=== PATIENT | female | born 1995 | race Caucasian/White ===

== ENCOUNTER 2018-10-22 07:52 | Day surgery (SDC) | payer OTHER ==
[2018-10-20 14:21] VITALS: Ht 160 cm; Wt 76.8 kg
[2018-10-22] VITALS (10 sets, daily range): BP systolic 90–137; BP diastolic 47–72; PULSE 62–98; RESP 10–25
[~2018-10-22] VITALS: Ht 160 cm; Wt 76.8 kg
[~2018-10-22 07:52] MED LIST: CEFAZOLIN 2 GM/50 ML (PMX) 50 ML IVPB SCH; SOD CHLORIDE 0.9% 1,000 ML IV SCH
[2018-10-22] MEDS ORDERED: PNV1TABL12 ORAL (08:22)
--- NOTE | 2018-10-22 11:19 | PREAC ---
Date/Time of Note Date/Time of Note DATE: 10/22/18 TIME: 11:18 Anesthesia Eval and Record Evaluation Time Pre-Procedure Interview DATE: 10/22/18 TIME: 11:18 Age 23 Sex female NPO: 8 hrs Preoperative diagnosis cholelithiasis Planned procedure laparoscopic cholecystectomy Past Medical History Past Medical History: Includes GI: Obesity Surgery & Anesthesia Issues No known issue Meds Anticoagulation: No Beta Sherman within 24 hr: No Reason Beta Sherman not given: Pt. not on B-Sherman Reported Medications Pnv Cmb#21/Iron/Folic Acid ( Complete Caplet) 1 Each Tablet, 1 TAB ORAL DAILY, TAB 10/22/18 Current Medications Cefazolin Sodium/ Dextrose 50 ml @ 100 mls/hr PREOP IVPB ; Start 10/22/18 at 07:00; Stop 10/22/18 at 16:00 Sodium Chloride 1,000 ml @ 75 mls/hr [id number] IV ; Start 10/22/18 at 07:00; Stop 10/22/18 at 20:19 Meds reviewed: Yes Allergies Coded Allergies: No Known Allergy (Unverified , 10/22/18) Allergies Reviewed: Yes Labs/Studies Labs Reviewed: Reviewed by anesthesiologist test: Negative Pre-procedure Exam Airway: Adequate mouth opening, Adequate thyromental dist Mallampati: Mallampati II Teeth: Normal Lung: Normal Heart: Normal ASA Physical Status ASA physical status: 2 Emergency: None Planned Anesthetic General/MAC: ETT Nerve block: TAP (bilateral) Planned Pain Management Single shot nerve block, Parenteral pain med Pre-operative Attestations Prior to commencing anesthesia and surgery, the patient was re-evaluated, there was verification of: *The patient's identity *The results of appropriate recent lab work and preoperative vital signs *The above evaluation not changing prior to induction *Anesthetic plan, risk benefits, alternative and complications discussed with patient/family; questions answered; patient/family understands, accepts and wishes to proceed. JOANN LOPEZ MD Oct 22, 2018 11:19
[2018-10-22] MEDS ORDERED: PROPOFOL 20 ML ONE (11:24)
[2018-10-22] MEDS ORDERED: ROCURONIUM 50 MG INJ ONE (11:24)
[2018-10-22] MEDS ORDERED: FENTAnyl 50 MCG/ML VIAL ONE ×2 (11:24→12:26)
[2018-10-22] MEDS ORDERED: LIDOCAINE 2% (SDV) 5 ML INJ ONE (11:24)
[2018-10-22] MEDS ORDERED: MIDAZOLAM 1 MG/ML 2 ML INJ ONE (11:24)
[2018-10-22] MEDS ORDERED: ROPIVACAINE 0.5 % 30 ML VIAL ONE (11:25)
[2018-10-22] MEDS ORDERED: FENTAnyl 50 MCG/ML VIAL IV PRN ×2 (11:30)
[2018-10-22] MEDS ORDERED: EPHEDrine SULFATE 50 MG/5 ML SYG IV PRN (11:30)
[2018-10-22] MEDS ORDERED: LABETALOL HCL 20MG INJ IV PRN (11:30)
[2018-10-22] MEDS ORDERED: MEPERIDINE 25 MG INJ IV PRN (11:30)
[2018-10-22] MEDS ORDERED: DIPHENHYDRAMINE 50 MG INJ IV PRN (11:30)
[2018-10-22] MEDS ORDERED: ONDANSETRON 4 MG INJ IV PRN (11:30)
[2018-10-22] MEDS ORDERED: OXYCODONE/ACETAMINOPHEN (5/325) TAB PO PRN (11:30)
[2018-10-22] MEDS ORDERED: HYDROmorphONE 1 MG/5 ML IV SYRINGE IV PRN ×3 (11:30)
[2018-10-22] MEDS ORDERED: hydrALAzine 20 MG INJ IV PRN (11:30)
[2018-10-22] MEDS ORDERED: PROCHLORPERAZINE 10 MG INJ IV PRN (11:30)
[2018-10-22] MEDS ORDERED: ONDANSETRON 4 MG INJ ONE (11:51)
[2018-10-22] MEDS ORDERED: CEFAZOLIN 1 GM INJ ONE ×2 (11:51)
[2018-10-22] MEDS ORDERED: DEXAMETHASONE 4 MG/ML 5 ML INJ ONE (11:51)
[2018-10-22] MEDS ORDERED: SUGAMMADEX SODIUM 200 MG/2 ML VIAL IV ONE (12:17)
[2018-10-22] MEDS ORDERED: KETOROLAC 30 MG INJ ONE (12:19)
--- NOTE | 2018-10-22 12:25 | OPR ---
Date/Time of Note Date/Time of Note DATE: 10/22/18 TIME: 12:23 Operative Report Procedure Date: Oct 22, 2018 Preoperative Diagnosis symptomatic gallstones Postoperative Diagnosis same Operation/Procedure Performed laparoscopic cholecystectomy Surgeon see signature line Gas Dispatcher Edouard Barton Anesthesia Type: general Estimated Blood Loss: 0 - 10 ml's Transfusion none Specimen gallbladder Grafts/Implants none Complications none Pt Condition Post Procedure: stable Indications This is a 23-year-old female with some tender gallstones. She required surgical excision of her gallbladder. Risks alternatives benefits and personnel were discussed with the patient. Patient expressed understanding consents to the operation. Procedure Description Patient is taken to the OR and prepped and draped in usual sterile fashion. Surgical time was performed. IV antibiotics given. Infraumbilical transverse i ncision was made with a 15 blade. Dissection with cautery was carried onto the fascia. The fascia was grasped with Sarah's and divided with curved Ivey scissors. 0 Vicryl U stitch was placed into the fascia. Wright trocar was introduced. Pneumoperitoneum is established. Midepigastric 12 mm optical trochars placed under direct position. Right upper quadrant upper flank 5 mm o ptical trochars were placed under direct position. Upon initial inspection there is adhesions to the gallbladder. The gallbladder is grasped the fundus and retracted lateral cephalad direction. [place] graspers were used to dissect out the cystic duct and cystic artery. The critical view was established. The cystic duct is divided to close proximally clipped distal and the division performed lap scopic scissors.. Cystic artery was divided 3 clips proximal to distal and the division was performed laparoscopic scissors per the gallbladder was taken of the gallbladder bed. Good hemostasis established. The gallbladder was retrieved using Endo Catch bag. Ports removed under direct position. 0 Vicryl was tied down. Skin is closed using skin haroon. A tap block was provided by the anesthesiologist. Dry dressings were applied. Malini STYLES Oct 22, 2018 12:25
[2018-10-22] MEDS ORDERED: HYDROCODONE/APAP (5/325) TAB PO ONE (12:30)
--- NOTE | 2018-10-22 12:45 | PAC ---
Date/Time of Note Date/Time of Note DATE: 10/22/18 TIME: 12:44 Post-Anesthesia Notes Post-Anesthesia Note Last documented vital signs Vital Signs Date Temp Pulse Resp B/P (MAP) Pulse Ox O2 O2 Flow FiO2 Time Delivery Rate 10/22/18 98.0 12:26 Activity: WNL Respiratory function: WNL Cardiovascular function: WNL Mental status: Baseline Pain reasonably controlled: Yes Hydration appropriate: Yes Nausea/Vomiting absent: Yes Comments BP: 126/61 HR: 88 RR: 15 T: 98 SaO2: 99% JOANN LOPEZ MD Oct 22, 2018 12:45
[2018-10-22] MEDS: FENTAnyl 50 MCG/ML VIAL IV PRN ×2 (12:47→12:54)
== END 2018-10-22 14:35 | disposition home or self-care (01) ==
LOC: SDS 07:52
PROVIDERS: ATTEND Surgery
DX: K80.10 Calculus of gallbladder with chronic cholecystitis without obstruction (principal)
CPT/HCPCS: 47562; 84703; 88304; J0690; J1100; J1885; J2175; J2250; J2405; J2795; J3010; Z7512; Z7610